=== PATIENT | male | born 1990 | race Caucasian/White ===

== ENCOUNTER → 2020-02-13 | Outpatient (CLI) | payer BC ==
--- NOTE | 2020-02-13 15:50 | XR ---
EXAMINATION TYPE: XR ankle complete RT DATE OF EXAM: 02/13/2020 COMPARISON: None HISTORY: Medial side ankle pain x3 days TECHNIQUE: Three-view right ankle FINDINGS: There is soft tissue swelling over the medial malleolus. Ankle mortise is intact. No acute fracture or dislocation is evident. IMPRESSION: 1. Mild soft tissue swelling medial malleolus. 2. No acute osseous abnormality
--- NOTE | 2020-02-13 15:52 | XR ---
EXAMINATION TYPE: XR foot complete RT DATE OF EXAM: 02/13/2020 COMPARISON: None HISTORY: Medial ankle pain, third fourth metatarsal pain TECHNIQUE: Three-view right foot FINDINGS: No acute fracture or dislocation is evident. Joint spaces are preserved. Soft tissues foot appear normal. Significant swelling at the ankle is not as well appreciated on this portion of the st udy. Follow-up studies of the ankle or foot be performed 7-10 days from acute injury for continued pain. IMPRESSION: 1. No acute osseous abnormality right foot
== END | disposition home or self-care (01) ==
LOC: RADXRMAIN 14:26
PROVIDERS: ATTEND Family Medicine
DX: M25.579 Pain in unspecified ankle and joints of unspecified foot (principal); M79.89 Other specified soft tissue disorders